=== PATIENT | male | born 1955 | race Caucasian/White ===

== ENCOUNTER → 2020-12-14 08:36 | Outpatient (CLI) | payer MEDICARE, SELFPAY ==
--- NOTE | 2020-12-14 | CA_ITS ---
APPROVED REPORT EXAM: Comprehensive 2D, Doppler, and color-flow Echocardiogram [employer] Counselor: Trista Domingo CRT Ht: 5 ft 5 in Wt: 165lbs BSA: 1.82 BP: 140/80 mmHg Indications: CAD, Hyperlipidemia, Hypertension/HDD, AAA, old HI, stents 2D Dimensions Aortic Root 2.00 cm LA Volume 52.40 mL LA Volume Index 28.80 mL/m2 (M/F) 16-34 M-Mode Dimensions RVDd 3.07 cm (0.9-2.6) LA Diam 4.02 cm (1.9-4.0) LVDd 4.76 cm (3.5-5.7) Ao Diam 3.62 cm (2.0-3.7) LVDs 3.08 cm (3.5-5.7) IVSd 1.27 cm (0.6-1.1) PWd 0.88 cm (0.6-1.1) EF (Teich) 64.60% FS 35.30% EDV (Teich) 105.40 mL TAPSE 2.29 (<1.7) ESV (Teich) 37.30 mL LV Diastology E Decel Time 193.00 (160-240 msec) E/A Ratio 1.11 MED E' 8.90 (< 7 cm/sec) MED A' 10.50 cm/s E'/MED E' Ratio 12.82 (>14) LAT E' 11.70 (<10 cm/sec) LAT A' 10.00 cm/s E/LAT E' Ratio 9.75 (>14) Aortic Valve LVOT Max 135.00 (70-110 cm/s) LVOT VTI 30.35 cm AoV Peak Jack. 187.00 (50-130 cm/s) AO Peak GR. 13.90 mmHg AO Mean GR. 7.60 (<5 mmHg) AO VTI 41.67 (18-25 cm) Mitral Valve MV A Velocity 103.00 (40-130 cm/s) E/A Ratio 1.11 MV Decel. Time 193.00 (160-240 ms) Pulmonary Valve PV Peak Velocity 76.00 (50-150 cm/s) Tricuspid Valve TR P. Velocity 337.00 cm/s RAP Estimate 10.00 mmHg RVSP 55.50 mmHg Left Ventricle Left atrium is mildly enlarged, left ventricle is normal size, mild concentric left ventricular hypertrophy, visually estimated ejection fraction 50% with no regional wall motion abnormality, diastolic parameters are inconclusive. Right Ventricle Right atrium and right ventricle are normal size and contractility. Aortic Valve Aortic valve is minimally thickened and calcified without Doppler evidence of aortic stenosis or aortic insufficiency. Mitral Valve Mitral valve is grossly normal, there is trace mitral regurgitation. Tricuspid Valve Tricuspid grossly normal, there is trace tricuspid regurgitation. Pulmonic Valve Pulmonic valve is poorly visualized. Great Vessels Aortic root is normal size. Pericardium No significant pericardial effusion noted. Conclusion 1. Mildly low left atrium, normal left ventricular size, visually estimated ejection fraction 50% with no regional wall motion abnormality, diastolic parameters are inconclusive. 2. Trace mitral and tricuspid regurgitation. 3. No significant pericardial effusion noted. Electronically signed by : Jenaro Ramos, 12/14/2020 18:04:41
[2020-12-14 09:29] LABS: Chloride 105 mmol/L (98-107); Sodium 138 mmol/L (136-145)
[2020-12-14 09:30] LABS: Potassium 4.4 mmoL/L (3.5-5.1)
[2020-12-14 09:32] LABS: Alanine Aminotransferase 24 U/L (12-78); Albumin Level 4.2 g/dl (3.5-5.0); Alkaline Phosphatase 64 U/L (38-126); Anion Gap 7.4 mEq/L (5-15); Aspartate Amino Transferase 23 U/L (17-59); Bilirubin,Total 0.6 mg/dl (0.2-1.3); Blood Urea Nitrogen 15 mg/dl (9-20); Carbon Dioxide 30 mmol/L (22.0-30.0); Estimated Glomerular Filt Rate 85 ml/min (>60); GFR (African American) 103 ML/MIN (>60)
[2020-12-14 09:33] LABS: Albumin/Globulin Ratio 1.8 (1.1-1.8); Calcium 9.1 mg/dl (8.4-10.2); Globulin 2.4 g/dL (1.3-3.2); Glucose 112 mg/dl (74-100); Total Protein,Serum 6.6 g/dl (6.3-8.2)
== END ==
PROVIDERS: Visit Provider Internal Medicine Cardiovascular Disease
DX: R60.0 Localized edema (principal)
CPT/HCPCS: 36415; 80053; 93306

== ENCOUNTER → 2021-01-01 08:43 | Outpatient (CLI) | payer MEDICARE, SELFPAY ==
[2021-01-01 10:06] LABS: Anion Gap 8.5 mEq/L (5-15); Blood Urea Nitrogen 19 mg/dl (9-20); Calcium 8.9 mg/dl (8.4-10.2); Carbon Dioxide 29 mmol/L (22.0-30.0); Chloride 105 mmol/L (98-107); Estimated Glomerular Filt Rate 75 ml/min (>60); GFR (African American) 91 ML/MIN (>60); Glucose 101 mg/dl (74-100); Potassium 4.5 mmoL/L (3.5-5.1); Sodium 138 mmol/L (136-145)
[2021-01-01 10:13] LABS: NT Pro Brain Natriuretic Pep. 53.2 pg/mL (0-125)
== END ==
PROVIDERS: Visit Provider Internal Medicine Cardiovascular Disease
DX: R06.00 Dyspnea, unspecified (principal)
CPT/HCPCS: 36415; 80048; 83880

== ENCOUNTER → 2021-04-22 19:18 | Outpatient (CLI) | payer MEDICARE, SELFPAY | PROVIDERS: Visit Provider Nurse Practitioner Family | DX: Z20.822 Contact with and (suspected) exposure to COVID-19 (principal) | CPT/HCPCS: C9803; U0003; U0005 ==

== ENCOUNTER 2021-04-26 09:11 | Emergency (ER) | payer MEDICARE, SELFPAY ==
[2021-04-26] VITALS (7 sets, daily range): BP systolic 131–165; BP diastolic 79–86; PULSE 60–72; RESP 16–18; TEMP 36.7–37; O2SAT 94–97; BMI 28.0
--- NOTE | 2021-04-26 09:21 | CT_ITS ---
PROCEDURE: CT ABDOMEN PELVIS W CON CLINICAL INDICATION: pain, distention COMPARISON: No exams were available for comparison TECHNIQUE: IV Contrast: 75ML Isovue 370 Oral Contrast None Axial images obtained with sagittal and coronal reformats. All CT scans at the facility use one or more dose reduction, viz: automated exposure control, ma/kV adjustment per patient size (including targeted exams where dose is matched to indication, i.e. head), or iterative reconstruction technique. FINDINGS: LOWER THORAX: 4 mm noncalcified nodules present in the right middle lobe image 5 series 3. Coronary artery calcifications are present ABDOMEN & PELVIS: Fatty liver. Prior cholecystectomy. Mild central biliary ectasia. Splenomegaly at 15 cm. The pancreas, adrenal glands, and kidneys have an unremarkable appearance. There is an aortoiliac stent graft present which appears patent. No evidence of endo graft leak. The graft does appear to cover the orifice the renal arteries. The [place] aorta measures 3.3 cm in AP dimension Prior prostate brachytherapy with multiple seed implants. Urinary bladder is contracted. There is mild thickening of the colon. This however could be due to nondistention. Postsurgical changes right inguinal area. There is a small umbilical hernia containing fat. No acute bony findings IMPRESSION: Mild thickening of the colon throughout. This is nonspecific and may be due to nondistention versus mild colitis. Other nonacute findings as described above. Dictated by: Jeremy Giordano MD 04/26/2021 10:37 Jeremy Giordano MD in [place] 04/26/2021 10:37
--- NOTE | 2021-04-26 09:23 | HMH.EDGENADL ---
ED Disposition Clinical Impression: Colitis Disposition: Home, Self-Care Condition on Discharge: Good Additional Instructions: Obtain local PCP for further work-up and management. Return emergency department for blood in your stool, fever, worsening pain. Referrals: Provider,Referral, [Primary Care Provider] - 3 days Time of Disposition: 10:51 - Critical Care Critical Care Time: No Attestation: On , the high probability of a clinically significant, sudden or life threatening deterioration of the following system(s) required my full and direct attention, intervention and personal management. The time I documented below is in addition to time spent performing reported procedures but includes the following listed in this critical care notation. Medical Decision Making - Medical Records Medical records reviewed: Yes: I reviewed the patient's medical records. - Perry Inquiry Pt receiving controlled substance: No Vital Signs: 04/26/21 09:12 04/26/21 09:23 04/26/21 09:30 Temperature 98.6 F Temperature Source Oral Pulse Rate 69 67 Pulse Rate [Right] 72 Respiratory Rate 18 Blood Pressure 141/86 H Blood Pressure [Right Arm] 165/86 H Blood Pressure Mean 104 Blood Pressure Mean [Right Arm] 112 02 Sat by Pulse Oximetry 96 97 96 Oxygen Delivery Method Room Air 04/26/21 09:33 04/26/21 10:00 Temperature Temperature Source Pulse Rate 63 Pulse Rate [Right] Respiratory Rate Blood Pressure 143/80 H Blood Pressure [Right Arm] Blood Pressure Mean 101 Blood Pressure Mean [Right Arm] 02 Sat by Pulse Oximetry 96 Oxygen Delivery Method - Lab Data Lab results reviewed: Yes: I reviewed the patient's lab results. Lab Results 04/26/21 09:20: Urine Color Yellow, Urine Appearance Clear, Urine pH 5.5, Ur Specific [place] >= 1.030, Urine Protein Negative, Urine Glucose (UA) Negative, Urine Ketones Negative, Urine Blood Negative, Urine Nitrate Negative, Urine Bilirubin 1+ A, Urine Urobilinogen 0.2, Ur Leukocyte Esterase Negative, Urine RBC None, Urine WBC 3-5, Ur Squamous Epith Cells 3-5, Urine Bacteria None 04/26/21 09:25: WBC 6.7, RBC 4.16 L, Hgb 14.3, Hct 42.1, MCV 101.3 H, MCH 34.4 H, MCHC 34.0, RDW 15.0, Plt Count 236, MPV 7.0 L, Neut % (Auto) 74.8, Lymph % (Auto) 17.6, [place] % (Auto) 5.0, Eos % (Auto) 2.1, Baso % (Auto) 0.5, Neut # (Auto) 5.0, Lymph # (Auto) 1.2, [place] # (Auto) 0.3, Eos # (Auto) 0.1, Baso # (Auto) 0.0 04/26/21 09:25: Sodium 141, Potassium 4.2, Chloride 105, Carbon Dioxide 26, Anion Gap 14.2, BUN 14, Creatinine 0.80, Estimated Creat Clear 84, Estimated GFR 98, Est GFR ( Amer) 118, Glucose 143 H, Calcium 9.3, Total Bilirubin 0.8, AST 36, ALT 51, Alkaline Phosphatase 87, Total Protein 7.3, Albumin 4.5, Globulin 2.8, Albumin/Globulin Ratio 1.6, Lipase 52 04/26/21 09:32: SARS-CoV-2 (PCR) Not detected, Influenza A Untype (PCR) Not detected, Influenza Type B (PCR) Not detected Result diagrams: 04/26/21 09:25 04/26/21 09:25 Orders (Tests/Meds): ED MEDICATIONS Discontinued Medications Generic Name Dose Route Start Last Admin Trade Name Freq PRN Reason Stop Dose Admin Lactated Ringer's 1,000 mls @ 999 mls/hr 04/26/21 09:30 04/26/21 09:28 Lactated Ringer's 1000 Ml Bag IV 04/26/21 10:30 999 mls/hr .Q1H1M PLACIDO Administration Iopamidol 75 ml 04/26/21 10:12 04/26/21 10:16 Iopamidol-370 (76%);100ml Bottle IV 04/26/21 10:13 75 ml ONCE ONE Administration Ondansetron HCl 4 mg 04/26/21 09:21 04/26/21 09:28 Ondansetron 4mg/2ml Vial IV 04/26/21 09:22 4 mg ONCE ONE Administration Sodium Chloride 10 ml 04/26/21 10:12 04/26/21 10:16 Sodium Chloride 0.9% 10ml Syr (Rad Only) IV 04/26/21 10:13 10 ml ONCE ONE Administration Medical Decision Narrative: 65yo M evaluated for abdominal pain and distention. Differential diagnosis includes but not limited to: Ileus, SBO, mass, volvulus, enteritis. Patient is in no acute distress on
[2021-04-26 09:35] LABS: Basophils % 0.5 % (0.1-2.0); Eosinophils # 0.1 K/mm3 (0.0-0.4); Eosinophils % 2.1 % (0.1-12.0); Hematocrit 42.1 % (42.0-52.0); Hemoglobin 14.3 g/dL (14.1-18.0); Lymphocytes # 1.2 K/mm3 (0.7-4.5); Lymphocytes % 17.6 % (10-50); Mean Corpuscular Hemoglobin 34.4 pg (27.0-31.2); Mean Corpuscular Volume 101.3 fl (80-94); Monocytes # 0.3 K/mm3 (0.1-1.0); Neutrophils % 74.8 % (37.0-80.0); Platelet Count 236 K/mm3 (142-424); Red Blood Count 4.16 M/mm3 (4.60-6.20); White Blood Count 6.7 K/mm3 (4.8-10.8)
--- NOTE | 2021-04-26 09:35 | PC.NURSE ---
Dr. Burgos at bedside.
[2021-04-26 09:40] LABS: Chloride 105 mmol/L (98-107); Potassium 4.2 mmoL/L (3.5-5.1); Sodium 141 mmol/L (136-145)
[2021-04-26 09:43] LABS: Alanine Aminotransferase 51 U/L (12-78); Albumin Level 4.5 g/dl (3.5-5.0); Albumin/Globulin Ratio 1.6 (1.1-1.8); Alkaline Phosphatase 87 U/L (38-126); Anion Gap 14.2 mEq/L (5-15); Aspartate Amino Transferase 36 U/L (17-59); Bilirubin,Total 0.8 mg/dl (0.2-1.3); Blood Urea Nitrogen 14 mg/dl (9-20); Calcium 9.3 mg/dl (8.4-10.2); Carbon Dioxide 26 mmol/L (22.0-30.0); Creatinine Clearance Estimated 84 mL/min (50-200); Estimated Glomerular Filt Rate 98 ml/min (>60); GFR (African American) 118 ML/MIN (>60); Globulin 2.8 g/dL (1.3-3.2); Glucose 143 mg/dl (74-100); Lipase 52 U/L (23-300); Total Protein,Serum 7.3 g/dl (6.3-8.2)
[2021-04-26 09:50] LABS: Coronavirus 19, PCR Not Detected (NotDetected); Influenza B, PCR Not Detected (NotDetected)
[2021-04-26 09:50] LABS: Microscopic, Urine URINE MICROSCOPIC (MICROSCOPIC)
[2021-04-26 09:52] LABS: Appearance,Urine CLEAR (Clear); Blood, Urine Negative (Negative); Color,Urine YELLOW (Yellow); Glucose,Urine (UA) Negative (Negative); Ketones,Urine Negative (Negative); Leukocyte Esterase,Urine Negative (Negative); Nitrate,Urine Negative (Negative); PH,Urine 5.5 (5.0-8.5); Protein,Urine Negative (Negative); Specific Gravity, Urine >= 1.030 (1.005-1.030); Urobilinogen,Urine 0.2 EU/dl (0.2)
[2021-04-26 09:54] LABS: Bilirubin,Urine 1+ (Negative)
--- NOTE | 2021-04-26 10:05 | PC.NURSE ---
PT TO CT SCANNER VIA WHEELCHAIR AT THIS TIME.
[2021-04-26 10:13] LABS: Influenza A, PCR Not Detected (NotDetected)
== END 2021-04-26 11:03 | disposition home or self-care (01) ==
PROVIDERS: Emergency Provider Family Medicine
DX: K52.9 Noninfective gastroenteritis and colitis, unspecified (principal); R10.84 Generalized abdominal pain; K21.9 Gastro-esophageal reflux disease without esophagitis; E78.5 Hyperlipidemia, unspecified; I10 Essential (primary) hypertension; Z20.822 Contact with and (suspected) exposure to COVID-19
CPT/HCPCS: 74177; 80053; 81001; 83690; 85025; 96365; 96375; 99284; C9803; J2405; Q9967; U0003; U0005

== ENCOUNTER 2022-01-31 13:00 | Emergency (ER) | payer MEDICARE, SELFPAY ==
[2022-01-31 13:07] VITALS: BP 140/96; PULSE 71; RESP 16; O2SAT 98; BMI 28.2
--- NOTE | 2022-01-31 13:09 | XR_ITS ---
FINAL REPORT CLINICAL HISTORY: fall, pt states that he fell 12 days ago and that from his 3rd digit to his forearm is still in pain and throbbing. FINDINGS: 2 views of the left forearm were obtained. There is postoperative change of the distal radius with a screw plate and multiple screws. There is no acute fracture or dislocation. The joint spaces are intact. There is no soft tissue abnormality. IMPRESSION: No acute abnormality. Reviewed, Interpreted and Dictated by Abdoul Reyes III, MD Transcribed by Christopher Cui Authenticated and . [facility]
--- NOTE | 2022-01-31 13:09 | XR_ITS ---
FINAL REPORT CLINICAL HISTORY: fall, pt states that he fell 12 days ago and that from the 3rd digit to the forearm is still in pain and throbbing. FINDINGS: 3 views of the left wrist were obtained. There is postoperative change of the distal radius. There is no acute fracture or dislocation. There is mild degenerative change of the radial aspect of the wrist. There is no soft tissue abnormality. IMPRESSION: No acute abnormality. Reviewed, Interpreted and Dictated by Abdoul Reyes III, MD Transcribed by Christopher Cui Authenticated and [facility]
--- NOTE | 2022-01-31 13:09 | XR_ITS ---
FINAL REPORT CLINICAL HISTORY: fall FINDINGS: LEFT HAND: 3 views of the left hand were obtained. There is no acute fracture or dislocation. Visualized joint spaces are normally aligned. Soft tissues are unremarkable. IMPRESSION: No acute bony abnormality. Reviewed, Interpreted and Dictated by Abdoul Reyes III, MD Transcribed by Christopher Cui Authenticated and [facility]
--- NOTE | 2022-01-31 13:21 | HMH.EDUTC ---
[facility] [place] Disposition Clinical Impression: Left hand pain, Left wrist pain Fall Qualifiers: Encounter type: initial encounter Qualified Code(s): W19.XXXA - Unspecified fall, initial encounter Disposition: Home, Self-Care Condition on Discharge: Good Instructions: DI for Wrist Sprain, DI for Hand Injury Additional Instructions: Rest the extremity, Elevate the extremity as tolerated while you are resting. Follow up with Dr. Chaves (orthopedics) or your orthopedic doctor of choice. I put in a referral but you need to call his office and schedule an appointment. Follow up with your regular doctor. GO TO THE ER FOR ANY WORSENING SYMPTOMS Prescriptions: methylPREDNISolone [Medrol] 4 mg PO DIRECTED 6 Days #21 packet Transmission Status: Received by [employer] [facility] #[id number] Referrals: Provider,MD Marli [Primary Care Provider] - Renny Chaves MD [Staff Physician] - Time of Disposition: 14:28 Medical Decision Making - Medical Records Medical records reviewed: No: I reviewed the patient's medical records. - Perry Inquiry Pt receiving controlled substance: No Vital Signs: 01/31/22 13:07 01/31/22 13:34 01/31/22 14:39 Temperature 98.9 F 98.9 F Temperature Source Oral Pulse Rate 71 Pulse Rate [Left Radial] 71 71 Respiratory Rate 16 16 16 Blood Pressure 140/96 H Blood Pressure [Left Arm] 140/96 H 140/96 H Blood Pressure Mean [Left Arm] 110 110 Blood Pressure Source [Left Arm] Automatic Cuff Blood Pressure Position [Left Arm] Sitting 02 Sat by Pulse Oximetry 98 98 Oxygen Delivery Method Room Air - Radiology Data #1 Image(s): Wrist Image Reviewed: Yes I reviewed the patient's radiology image, Yes I have reviewed radiologist's interpretation Preliminary Findings: No Fracture Seen FINAL REPORT CLINICAL HISTORY: fall, pt states that he fell 12 days ago and that from the 3rd digit to the forearm is still in pain and throbbing. FINDINGS: 3 views of the left wrist were obtained. There is postoperative change of the distal radius. There is no acute fracture or dislocation. There is mild degenerative change of the radial aspect of the wrist. There is no soft tissue abnormality. IMPRESSION: No acute abnormality. Reviewed, Interpreted and Dictated by Abdoul Reyes III, MD Transcribed by Christopher Cui Authenticated and [facility] #2 Image(s): Hand Image Reviewed: Yes I reviewed the patient's radiology image, Yes I have reviewed radiologist's interpretation Preliminary Findings: Normal/NAD, No Fracture Seen FINAL REPORT CLINICAL HISTORY: fall FINDINGS: LEFT HAND: 3 views of the left hand were obtained. There is no acute fracture or dislocation. Visualized joint spaces are normally aligned. Soft tissues are unremarkable. IMPRESSION: No acute bony abnormality. Reviewed, Interpreted and Dictated by Abdoul Reyes III, MD Transcribed by Christopher Cui Authenticated and [facility] HPI - General Stated complaint: AO fall 01/21 arm pain Time Seen by Provider: 01/31/22 13:21 Mode of Arrival: Ambulatory Source of Information: Patient Limitations: No Limitations Description of Symptoms (Recalled from Triage Doc. by RN): Pt c/o L wrist/hand pain r/t fall. Pt reports he fell approx 10 days ago, reports pain is worsening and feels like hand is swelling. Pt denies numbness/tingling. - History of Present Illness Provider Complaint: He states that he fell around 10 days ago and came down on his right hand and wrist. He has had pain, swelling and stiffness of that wrist and hand since then. He has a significant history of falling and fracturing that wrist around 15 years ago. He had to have internal fixation of it then. - Related Data Home Medications Medication Instruct
[2022-01-31 13:34] VITALS: BP 140/96; PULSE 71; RESP 16; TEMP 37.2; O2SAT 98; BMI 28.1
[2022-01-31 14:39] VITALS: BP 140/96; PULSE 71; RESP 16; TEMP 37.2
== END 2022-01-31 14:40 | disposition home or self-care (01) ==
LOC: ER 13:09 → UTC 13:09
PROVIDERS: Emergency Provider Nurse Practitioner Family
DX: M25.532 Pain in left wrist (principal); M79.642 Pain in left hand; W19.XXXA Unspecified fall, initial encounter
CPT/HCPCS: 73090; 73110; 73130; 99212; G0463